=== PATIENT | female | born 1960 | race American Indian/Alaskan Native ===

== ENCOUNTER 2016-05-06 12:10 | Outpatient (CLI) | payer MEDICAID ==
--- NOTE | 2016-05-06 13:41 | XRay Report ---
ROUTINE CHEST, TWO VIEWS: HISTORY: Short of breath. The trachea, heart, mediastinal contour, lung crenshaw and bony thorax are unremarkable. IMPRESSION: Unremarkable chest x-ray.
== END 2016-05-06 12:11 | disposition home or self-care (01) ==
LOC: XRAY 12:10
PROVIDERS: ATTEND Internal Medicine
DX: R06.02 Shortness of breath (principal)
CPT/HCPCS: 71020

== ENCOUNTER 2017-09-14 14:52 | Outpatient (CLI) | payer MEDICAID ==
--- NOTE | 2017-09-14 16:47 | Ultrasound Report ---
RIGHT BREAST ULTRASOUND: 09/14/17 14:52:00 CLINICAL: A 57-year-old patient with cerebral palsy and breast mass. A bilateral mammogram was ordered but mammography is not feasible in this patient. She was combative with the technologist and with her mother for this examination. COMPARISON: 11/17/12 FINDINGS: Ultrasound of the right breast demonstrated a possible solid hypoechoic mass at 11 o'clock next to the nipple measuring 4.1 x 1.4 x 4.1 cm. It has a somewhat lobular contour and is relatively homogeneous and hypoechoic. Without scanning the rest of the breast is difficult to discern if this is an actual mass or this is normal breast tissue. The technologist was unable to complete a global examination of the breast for reasons cited above. IMPRESSION: A 4.1 cm solid right breast mass. BI-RADS 0--Needs Additional Evaluation RECOMMENDATION: Evaluation by a breast surgeon who may be able to better evaluate this patient with a breast exam and advise on additional imaging. It is doubtful that mammography will be possible under any circumstances but mild sedation with an oral anxiolytic may be helpful when she does see a breast surgeon.
== END 2017-09-14 14:53 | disposition home or self-care (01) ==
LOC: MAMMO 14:52
PROVIDERS: ATTEND Internal Medicine
DX: N63.10 Unspecified lump in the right breast, unspecified quadrant (principal)